=== PATIENT | male | born 1960 | race Two or more races ===

== ENCOUNTER 2020-08-17 08:10 | Emergency (ER) | payer MEDICAID ==
[~2020-08-17] VITALS: Ht 152.4 cm; Wt 63.5 kg
[2020-08-17 08:26] VITALS: BP 156/93
[2020-08-17] MEDS ORDERED: LORazepam Inj 2mg/ml 1ml ONE (09:20)
--- NOTE | 2020-08-17 09:21 | Emergency Room Report ---
History of Present Illness General Chief Complaint: Palpitations Source: Patient Present Illness HPI Patient is a 59-year-old male who presents for increased shakiness. Had recently stopped drinking alcohol. Denies any fever. Denies any cough. Reports having palpitations. Previously had been drinking heavily. Stopped drinking approximately 5 days prior to arrival. Denies any vomiting or diarrhea. Denies any focal weakness. Denies any bleeding. Allergies: Coded Allergies: No Known Allergies (Unverified , 08/17/20) COVID-19 Screening Contact w/high risk pt: No Experienced COVID-19 symptoms?: No COVID-19 Testing performed SLIDE DEVELOPER: No Patient History Past Medical History: see triage record Reviewed Nursing Documentation: PMH: Agreed; PSxH: Agreed Nursing Documentation-PMH Past Medical History: No Stated History Review of Systems All Other Systems: negative except mentioned in HPI Physical Exam Vital Signs Date Time Temp Pulse Resp B/P (MAP) Pulse Ox O2 Delivery O2 Flow Rate FiO2 08/17/20 08:10 98.8 94 18 156/93 (114) 98 Room Air Sp02 EP Interpretation: reviewed, normal General Appearance: no apparent distress, alert, GCS 15, mild distress Head: atraumatic ENT: normal ENT inspection, hearing grossly normal, normal voice Neck: normal inspection, full range of motion, supple, no bony tend Respiratory: normal inspection, lungs clear, normal breath sounds, no respiratory distress, no retraction, no wheezing Cardiovascular #1: regular rate, rhythm, no edema Gastrointestinal: normal inspection, normal bowel sounds, non tender, soft, no guarding, no hernia Genitourinary: no CVA tenderness Musculoskeletal: normal inspection, back normal, normal range of motion Neurologic: alert, motor strength/tone normal, telecine operator III-XII nml as tested, oriented x3, responsive, speech normal, other - Tremulous Psychiatric: normal inspection, judgement/insight normal, mood/affect normal Medical Decision Making Diagnostic Impression: Primary Impression: Alcohol withdrawal ER Course Patient presented for increased shakiness. Differential diagnosis include was not limited to alcohol withdrawal, electrolyte abnormality, anxiety, urinary tract infection among others. Because of complexity of patient's case laboratory tests were ordered. Patient history is consistent with recent cessation of significant alcohol intake. CT imaging showed no evidence of acute intracranial process. Patient given IV Ativan with improvement in tremulousness. He was also given IV thiamine. Patient observed in the emergency department. Appears to be improved after medications. Patient given prescription for Ativan. He is advised to follow-up with his primary care physician and to continue alcohol cessation. He is advised to return if worse. This medical record is generated with [employer] editorial intern software. There may be some editorial intern discrepancies related to use of this software Labs Test 08/17/20 09:25 08/17/20 09:30 POC Whole Blood Glucose 107 MG/DL (74-106) White Blood Count 7.3 K/UL (4.8-10.8) Red Blood Count 4.59 M/UL (4.70-6.10) Hemoglobin 14.4 G/DL (14.2-18.0) Hematocrit 41.7 % (42.0-52.0) Mean Corpuscular Volume 91 FL (80-99) Mean Corpuscular Hemoglobin 31.5 PG (27.0-31.0) Mean Corpuscular Hemoglobin Concent 34.7 G/DL (32.0-36.0) Red Cell Distribution Width 14.8 % (11.6-14.8) Platelet Count 181 K/UL (150-450) Mean Platelet Volume 7.8 FL (6.5-10.1) Neutrophils (%) (Auto) 76.3 % (45.0-75.0) Lymphocytes (%) (Auto) 11.9 % (20.0-45.0) Monocytes (%) (Auto) 10.5 % (1.0-10.0) Eosinophils (%) (Auto) 0.2 % (0.0-3.0) Basophils (%) (Auto) 1.1 % (0.0-2.0) Urine Color Yellow Urine Appearance Clear Urine pH 5 (4.5-8.0) Urine Specific Goff 1.025 (1.005-1.035) Urine Protein 3+ (NEGATIVE) Urine Glucose (UA) Negative (NEGATIVE) Urine Ketones 4+ (NEGATIVE) Urine Blood 2+ (NEGATIVE) Urine Nitrite Negative (NEGATIVE) Urine Bilirubin Negative (NEGATIVE) Urine Urobilinogen 4 MG/DL (0.0-1.0) Urine Leukocyte Esterase 1+ (NEGATIVE) Urine RBC 5-10 /HPF (0 - 0) Urine WBC 0-2 /HPF (0 - 0) Urine Squamous Epithelial Cells Occasional /LPF Urine Bacteria Occasional /HPF (NONE) Urine Mucus Few /LPF (NONE/OCC) Sodium Level 137 MMOL/L (136-145) Potassium Level 3.3 MMOL/L (3.5-5.1) Chloride Level 100 MMOL/L (98-107) Carbon Dioxide Level 26 MMOL/L (21-32) Anion Gap 11 mmol/L (5-15) Blood Urea Nitrogen 17 mg/dL (7-18) Creatinine 0.7 MG/DL (0.55-1.30) Estimat Glomerular Filtration Rate > 60 mL/min (>60) Glucose Level 101 MG/DL (74-106) Calcium Level 8.7 MG/DL (8.5-10.1) Phosphorus Level 4.1 MG/DL (2.5-4.9) Magnesium Level 2.1 MG/DL (1.8-2.4) Total Bilirubin 2.4 MG/DL (0.2-1.0) Direct Bilirubin 0.6 MG/DL (0.0-0.3) Aspartate Amino Transf (AST/SGOT) 125 U/L (15-37) Alanine Aminotransferase (ALT/SGPT) 141 U/L (12-78) Alkaline Phosphatase 118 U/L (46-116) Total Protein 7.8 G/DL (6.4-8.2) Albumin 3.7 G/DL (3.4-5.0) Globulin 4.1 g/dL Albumin/Globulin Ratio 0.9 (1.0-2.7) Salicylates Level < 0.2 ug/mL (2.8-20) Urine Opiates Screen Negative (NEGATIVE) Acetaminophen Level < 2 MCG/ML (10-30) Urine Barbiturates Screen Negative (NEGATIVE) Phencyclidine (PCP) Screen Negative (NEGATIVE) Urine Amphetamines Screen Negative (NEGATIVE) Urine Benzodiazepines Screen Negative (NEGATIVE) Urine Cocaine Screen Negative (NEGATIVE) Urine Marijuana (THC) Screen Negative (NEGATIVE) Serum Alcohol < 3 mg/dL EKG Diagnostic Results Rate: normal Rhythm: NSR ST Segments: no acute changes Last Vital Signs Date Time Temp Pulse Resp B/P (MAP) Pulse Ox O2 Delivery O2 Flow Rate FiO2 08/17/20 08:26 98.8 94 18 156/93 98 Room Air Status: improved Disposition: HOME, SELF-CARE Condition: Stable Scripts Lorazepam* (ATIVAN*) 1 Mg Tablet 1 MG ORAL THREE TIMES A DAY, #15 TAB Prov: Karthik Kennedy MD 08/17/20 Referrals: NOT CHOSEN [facility]/MD,REFERRING (PCP) Karthik Kennedy MD Aug 17, 2020 09:21
[2020-08-17] MEDS ORDERED: Thiamine HCl 100 MG in D5W 55 ML IV ONE (09:30)
[2020-08-17] MEDS ORDERED: LORazepam Inj 2mg/ml 1ml IV ONE (09:30)
[2020-08-17] MEDS ORDERED: Magnesium Sulfate 2,000 MG, Folic Acid 1 MG, Multivitamin - 12 Injection 10 ML in Sodiu... IV ONE (09:30)
[2020-08-17 09:57] LABS: BASOPHILS % (AUTO) 1.1 % (0.0-2.0); EOSINOPHILS % (AUTO) 0.2 % (0.0-3.0); HEMATOCRIT 41.7 % (42.0-52.0); HEMOGLOBIN 14.4 G/DL (14.2-18.0); LYMPHOCYTES % (AUTO) 11.9 % (20.0-45.0); MEAN CORPUSCULAR VOLUME 91 FL (80-99); MONOCYTES % (AUTO) 10.5 % (1.0-10.0); NEUTROPHILS % (AUTO) 76.3 % (45.0-75.0); PLATELET COUNT 181 K/UL (150-450); RED BLOOD COUNT 4.59 M/UL (4.70-6.10); RED CELL DISTRIBUTION WIDTH 14.8 % (11.6-14.8); WHITE BLOOD COUNT 7.3 K/UL (4.8-10.8)
[2020-08-17 10:03] LABS: APPEARANCE,URINE CLEAR; BILIRUBIN, URINE NEGATIVE (NEGATIVE); GLUCOSE, URINE (UA) NEGATIVE (NEGATIVE); KETONES,URINE 4+ (NEGATIVE); LEUKOCYTE ESTERASE ,URINE 1+ (NEGATIVE); NITRITE,URINE NEGATIVE (NEGATIVE); PH,URINE 5 (4.5-8.0); PROTEIN,URINE 3+ (NEGATIVE); UROBILINOGEN,URINE 4 MG/DL (0.0-1.0)
[2020-08-17 10:12] LABS: ANION GAP 11 mmol/L (5-15); BLOOD UREA NITROGEN 17 mg/dL (7-18); CALCIUM 8.7 MG/DL (8.5-10.1); CARBON DIOXIDE 26 MMOL/L (21-32); CHLORIDE 100 MMOL/L (98-107); CREATININE 0.7 MG/DL (0.55-1.30); POTASSIUM 3.3 MMOL/L (3.5-5.1); SODIUM 137 MMOL/L (136-145)
[2020-08-17 10:15] LABS: COLOR,URINE YELLOW
[2020-08-17 10:17] LABS: PHOSPHORUS 4.1 MG/DL (2.5-4.9)
[2020-08-17 10:23] LABS: ALANINE AMINOTRANSFERASE 141 U/L (12-78); ALBUMIN 3.7 G/DL (3.4-5.0); ALBUMIN/GLOBULIN RATIO 0.9 (1.0-2.7); ALKALINE PHOSPHATASE 118 U/L (46-116); ASPARTATE AMINO TRANSFERASE 125 U/L (15-37); BILIRUBIN,TOTAL 2.4 MG/DL (0.2-1.0)
[2020-08-17 10:24] LABS: BILIRUBIN,DIRECT 0.6 MG/DL (0.0-0.3)
[2020-08-17] MEDS ORDERED: ATIVAN1 MG ORAL (13:21)
[2020-08-17 13:32] VITALS: BP 122/78
--- NOTE | 2020-08-17 13:39 | Diagnostic Imaging Report ---
Indications: Altered mental status Technique: Spiral acquisitions obtained through the brain. Angled axial and coronal 5 x 5 mm slices were reconstructed. Total dose length product 1030 mGycm. CTDI vol(s) 53 mGy. Dose reduction achieved using automated exposure control Comparison: None. Findings: No acute intracranial hemorrhage or edema, mass effect, nor midline shift. Normal moses-white differentiation. Ventricles and extra-axial CSF spaces are somewhat prominent for age. Visualized orbits are unremarkable. The calvarium is intact. The mastoids are clear. There is bilateral maxillary and ethmoid sinus disease. Impression: Negative for acute intracranial bleed or mass effect The CT scanner at [facility] is accredited by the [employer] and the scans are performed using protocols designed to limit radiation exposure to as low as reasonably achievable to attain images of sufficient resolution adequate for diagnostic evaluation.
== END 2020-08-17 13:32 | disposition home or self-care (01) ==
LOC: EMR 08:50
DX: F10.239 Alcohol dependence with withdrawal, unspecified (principal); Y90.0 Blood alcohol level of less than 20 mg/100 ml
CPT/HCPCS: 36415; 70450; 80053; 80307; 81003; 82248; 82962; 83735; 84100; 85025; 93005; 96365; 96366; 96367; 96375; G0480; G0481; J3475; J3490; J7030; Z7502; 99284